=== PATIENT | female | born 1940 | race Caucasian/White ===

== ENCOUNTER 2018-03-23 06:13 | Emergency (ER) | payer OTHER ==
[~2018-03-23] VITALS: Ht 162.6 cm; Wt 56.2 kg
[2018-03-23 06:17] VITALS: Ht 162.6 cm; Wt 56.2 kg
[2018-03-23 09:12] VITALS: BP 129/87
== END 2018-03-23 09:12 | disposition home or self-care (01) ==
LOC: ED 06:13
DX: R07.89 Other chest pain (principal); Z90.710 Acquired absence of both cervix and uterus
CPT/HCPCS: J1885; Q0092